=== PATIENT | female | born 1990 | race Caucasian/White ===

== ENCOUNTER 2019-04-25 19:23 | Emergency (ER) | payer OTHER ==
[~2019-04-25] VITALS: Ht 170.2 cm; Wt 91.6 kg
[2019-04-25 19:32] VITALS: BP 124/95; Ht 170.2 cm; Wt 91.6 kg
== END 2019-04-25 20:05 | disposition left against medical advice (07) ==
LOC: ED 19:23
DX: Z53.21 Procedure and treatment not carried out due to patient leaving prior to being seen by health care provider (principal)